=== PATIENT | male | born 1980 | race Caucasian/White ===

== ENCOUNTER 2019-02-03 11:37 | Inpatient (IN) ==
--- NOTE | 2019-01-31 10:03 | EKG Report ---
Test Performed on : 01/31/2019 09:46:58 AM Test Reason : pat Blood Pressure : / mmHG Vent. Rate : 072 BPM Atrial Rate : 072 BPM P-R Int : 140 ms QRS Dur : 078 ms QT Int : 380 ms P-R-T Axes : 049 021 041 degrees QTc Int : 416 ms Normal sinus rhythm. Normal ECG When compared with ECG of 28-FEB-2016 11:46, No significant change was found Confirmed by Michael STILL, Clifford Santana ([id number]) on 02/02/2019 9:41:12 AM
[2019-01-31 10:21] LABS: HEMATOCRIT 44.1 % (42.0-52.0); HEMOGLOBIN 14.8 g/dL (14.0-18.0); MCH 28.8 PG (27-31); MCHC 33.6 g/dL (33-37); MCV 85.8 FL (81-99); MPV 9.7 FL (7.4-10.4); RBC 5.14 XMIL (4.7-6.1); RDW 14.3 % (11.5-14.5); WBC 11.47 X1000 (4.8-10.8)
[2019-01-31 11:07] LABS: AGAP 8; BUN 11 mg/dL (8-22); CALCIUM 9.4 mg/dL (8.8-10.2); CHLORIDE 102 mmol/L (98-107); COSMO 281; CREATININE 0.9 mg/dL (0.7-1.2); ESTIMATED GFR > 60; GLUCOSE 147 mg/dL (70-104); POTASSIUM 4.7 mmol/L (3.5-5.1); SODIUM 140 mmol/L (136-145); TCO2 30 mmol/L (25-35)
[2019-02-03] MEDS ORDERED: PEPCID ONE (12:25)
[2019-02-03] MEDS ORDERED: LR 1,000 ML ONE (12:25)
[2019-02-03] MEDS ORDERED: REGLAN ONE (12:25)
[2019-02-03] MEDS ORDERED: ROBINUL ONE ×2 (14:10→14:34)
[2019-02-03] MEDS ORDERED: DIPRIVAN 1% ONE (14:10)
[2019-02-03] MEDS ORDERED: XYLOCAINE-MPF 2% ONE (14:10)
[2019-02-03] MEDS ORDERED: NEOSTIGMINE ONE (14:34)
[2019-02-03] MEDS ORDERED: VANCOMYCIN ONE (14:40)
[2019-02-03] MEDS ORDERED: TOBRAMYCIN POWDER MISC ONE (14:45)
[2019-02-03] MEDS ORDERED: KEFZOL 2 GM/D5W 2 GM/50 ML IVPB ONE (15:37)
[2019-02-03] MEDS ORDERED: TORADOL ONE (15:56)
[2019-02-03] MEDS ORDERED: OFIRMEV 1000 MG/ISOTONIC SOLN 1,000 MG/100 ML BOTTLE ONE (15:56)
[2019-02-03] MEDS ORDERED: ZOFRAN ONE (15:56)
[2019-02-03] MEDS ORDERED: ZOFRAN IV PRN (16:46)
--- NOTE | 2019-02-03 20:59 | OPERATIVE NOTE ---
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 POSTOPERATIVE DIAGNOSIS: Right 5th metatarsal osteomyelitis. PROCEDURES: 1. Right irrigation and debridement to bone of the foot. 2. Right partial excision, 5th metatarsal. 3. Placement of antibiotic cement. SURGEON: Doug Espinoza MD. PATTERN FILER: J LUIS Frias, who was an integral part of the case, helping with all aspects of the case and helping to increase our OR efficiency greatly. ANESTHESIA: General with LMA. TOURNIQUET TIME: Less than 1 hour. IMPLANTS: Antibiotic cement with vancomycin and tobramycin. DISPOSITION: To PACU, hemodynamically stable. INDICATION FOR PROCEDURE: Mr. Garcia is a 39-year-old male whom I have been taking care of for a while now. He has had several infections in this foot, and here recently, he has had another infection that has gotten better with p.o. antibiotics. It is still somewhat red, and it looked like on MRI he had a 5th metatarsal osteomyelitis. I discussed with operative intervention to try to completely eradicate this infection, and he expressed understanding and wished to proceed. DESCRIPTION OF PROCEDURE: Mr. Garcia was identified in the preoperative holding area. The right foot was marked as the correct surgical site. He was then wheeled to the operating room and placed supine on the operating table. All bony prominences were well padded. He was induced under general anesthesia. LMA was placed. He was then flipped to the left lateral decubitus position. All bony prominences were checked again and well padded. The right lower extremity was then prepped with chlorhexidine, gluconate scrub, and then ChloraPrep and draped in normal sterile fashion. Surgical pause was performed. We identified the correct patient, the correct side, and the correct procedure. Preop antibiotics were held for cultures. We started with an incision over the 5th metatarsal. Dissection was carried down. I did not run into a lot of purulence. We got down to bone and ended up taking cultures right off the bone. After that, I gave antibiotics. I then cleaned out that whole area. There was some tissue that was not good bone at all, and so we used a curette and a rongeur to scrape the bone back until it looked nice and healthy on both the distal and then the proximal end. There was a little bit of a cavity left there in the end, and I debrided some of the soft tissue around that area also. I did not feel any pockets of pus or fluid anywhere, and it did not show up on the MRI, either. At this point, we irrigated everything copiously with normal saline. I then mixed up the bone cement and put tobramycin and vancomycin powder in. I then put some of the bone cement down in that void. We then closed with 0 Vicryl for the deep layer and then nylon on the skin. Adaptic, 4x4s, ABD, Sof-Rol, and posterior splint was applied. The tourniquet was let down. The patient had good capillary refill return to the toes. He was then awoken from general anesthesia, moved to his own bed, and taken to the PACU in stable condition. PLAN: Postoperatively, he will be nonweightbearing, right lower extremity. He will be admitted for IV antibiotics, and I will consult Dr. Tate as well. cc: Doug Espinoza MD
[2019-02-04] MEDS: OXY IR PO PRN ×3 (00:18→15:59)
[2019-02-04] MEDS: KEFZOL 1 GM/D5W 1 GM/50 ML IVPB IV SCH ×4 (00:19→22:15)
[2019-02-04] MEDS: LOVENOX SUBQ SCH (06:43)
--- NOTE | 2019-02-04 09:59 | ORTHOPAEDICS PROGRESS NOTE ---
DATE: 02/04/2019 SUBJECTIVE: Mr. Garcia is lying in bed this morning. Pain is controlled. OBJECTIVE: Right lower extremity exam, dressing is clean, dry, and intact. He is able to move the toes but does not have good feeling to the toes. ASSESSMENT: Status post right 5th metatarsal irrigation and debridement and partial excision and placement of antibiotic cement. PLAN: I discussed with Mr. Garcia about our plan. We will get him on IV antibiotics. Consult Dr. Tate for management of IV antibiotics. Will await his cultures as well. He is nonweightbearing right lower extremity for now. cc: Doug Espinoza MD
--- NOTE | 2019-02-04 12:43 | INFECTIOUS DISEASE CONSULT REP ---
DATE: 02/04/2019 CONCLUSION: The patient is status post surgery on his right foot by Dr. Espinoza for osteomyelitis. RECOMMENDATIONS: Pending the results of culture, I have placed the patient on cefepime. The patient is allergic to clindamycin and penicillin. However, he has tolerated cefazolin well, which is being used now for prophylaxis. Therefore, I think he should tolerate cefepime, which also is a cephalosporin antibiotic, quite well also. I plan to treat the patient for anywhere from 6 to 8 weeks with antibiotics pending on the organism, and also most likely it will be with intravenous antibiotics. DISCUSSION: The patient has been having right foot swelling and erythema. He underwent surgery on the foot by Dr. Espinoza yesterday. Osteomyelitis was noted on the 5th metatarsal. The patient's laboratory studies [place] [address], hemoglobin 14.8, and platelet count 346,000. Creatinine is 0.9. GFR is greater than 60. Gram stain of the material obtained at surgery showed no organisms. The culture is pending. PAST MEDICAL HISTORY/REVIEW OF SYSTEMS: Eyes and ears: He does not have any problem hearing or seeing. Neck: No stiffness. Respiratory: No cough or shortness of breath. Cardiac: No chest pain or palpitations. Gastrointestinal: No nausea, vomiting, or diarrhea. Genitourinary: No dysuria or flank pain. Bones, joints, muscles: See present illness. Endocrine: The patient is a diabetic but he does not have thyroid disease. Integument: No rashes. PREVIOUS HOSPITALIZATIONS AND OPERATIONS: The patient has had surgery previously on his right foot for infection. Also, he has had surgery for a renal calculus. MEDICAL DISEASES: Positive for diabetes mellitus, hypertension, hyperlipidemia, and renal calculi. INFECTIOUS DISEASE HISTORY: Positive for UTI and a right foot infection. FAMILY HISTORY: Positive for hypertension, myocardial infarction, stroke and cancer. SOCIAL HISTORY: [place] He is . He has a dog as a pet. The patient smokes cigarettes and drinks alcoholic beverages. He does not abuse drugs. 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 ALLERGIES: He is allergic to clindamycin and penicillin. The penicillin allergy is a rash. He has tolerated cefazolin well. HOME MEDICATIONS: 1. Wellbutrin. 2. Glipizide. 3. Mevacor. 4. Glucophage. 5. Zoloft. PHYSICAL EXAMINATION: Vital Signs: Temperature is 98.7 degrees, pulse 70, respirations 18, blood pressure 120/66. Patient weighs 275 pounds. General: This is an obese, young male. He is in no acute distress. Head/eyes/ears/nose/throat: He can hear my spoken words and see near objects. He does not have any white patches in his mouth. Neck: No meningismus. Lungs: Clear to auscultation. Cardiovascular: Peripheral pulses are palpable. Heart rate is regular. Abdomen: Soft and nontender. Extremities: The patient's right foot is in a large splint which has a dressing around it and an Antonio wrap around the splint and the patient's leg. Neurologic: The patient can move his extremities. His sensation is intact to touch. Integument: No rash noted. Thank you for the consult. cc: MD Doug Mclean MD MTDD
[2019-02-05] MEDS: KEFZOL 1 GM/D5W 1 GM/50 ML IVPB IV SCH ×3 (06:14→21:28)
[2019-02-05] MEDS: LOVENOX SUBQ SCH (06:14)
[2019-02-05] MEDS: WELLBUTRIN PO SCH ×2 (08:57→21:27)
[2019-02-05] MEDS: OXY IR PO PRN (08:57)
[2019-02-05] MEDS: GLUCOPHAGE PO SCH ×3 (09:01→17:10)
[2019-02-05] MEDS: ZOLOFT PO SCH (09:01)
[2019-02-05] MEDS: GLUCOTROL PO SCH (09:02)
--- NOTE | 2019-02-05 09:39 | PROGRESS NOTE ---
DATE: 02/05/2019 SUBJECTIVE: Mr. Garcia is lying in bed this morning. Overall pain seems controlled. OBJECTIVE: Right lower extremity exam, splint is clean, dry, and intact. He is able to move the toes, and has decreased sensation to the toes. ASSESSMENT: Status post right foot irrigation and debridement, partial excision of fifth metatarsal, and placement of antibiotic bone cement. PLAN: Mr. Garcia is going to continue on IV antibiotics per Dr. Tate's recommendations Dr. Tate did see him yesterday and put him on cefepime. We will plan on 6 to 8 weeks of IV antibiotics depending on how he responds. Cultures are no growth at this point. He is going to be nonweightbearing to the right lower extremity. cc: Doug Espinoza MD
[2019-02-05] MEDS: MEVACOR PO SCH (17:09)
[2019-02-06] MEDS: KEFZOL 1 GM/D5W 1 GM/50 ML IVPB IV SCH ×4 (00:39→21:47)
[2019-02-06] MEDS: LOVENOX SUBQ SCH (06:19)
--- NOTE | 2019-02-06 08:50 | ORTHOPAEDICS PROGRESS NOTE ---
DATE: 02/06/2019 SUBJECTIVE: Mr. Garcia lying in bed this morning. Pain is well controlled. OBJECTIVE: On right lower extremity exam, splint is clean, dry, and intact. He is able to move the toes. Dorsiflexion and plantar flexion. ASSESSMENT: Status post right foot irrigation debridement and placement of antibiotic cement. PLAN: We will take Mr. Garcia's dressing down tomorrow, take a look at the foot. We will get everything set up for discharge tomorrow. He will more than likely get a PICC line and then 6 weeks of IV antibiotics per Dr. Tate's recommendations. He is going to remain nonweightbearing right lower extremity. It looks like his cultures came back for strep which is only resistant to clindamycin. cc: Doug Espinoza MD
[2019-02-06] MEDS: GLUCOPHAGE PO SCH ×3 (09:15→16:33)
[2019-02-06] MEDS: WELLBUTRIN PO SCH ×2 (09:15→21:47)
[2019-02-06] MEDS: GLUCOTROL PO SCH (09:15)
[2019-02-06] MEDS: ZOLOFT PO SCH (09:15)
[2019-02-06] MEDS: MEVACOR PO SCH (16:33)
[2019-02-07] MEDS: KEFZOL 1 GM/D5W 1 GM/50 ML IVPB IV SCH ×3 (04:41→07:38)
[2019-02-07] MEDS: LOVENOX SUBQ SCH (05:20)
--- NOTE | 2019-02-07 07:56 | ORTHOPAEDICS PROGRESS NOTE ---
DATE: 02/07/2019 SUBJECTIVE: Mr. Garcia is lying in bed this morning. Overall feeling okay. OBJECTIVE: Right lower extremity exam: Dressing was taken down today. Wounds are looking good. His erythema to the lateral aspect of the foot is completely gone. He has a lot of numbness to the foot, which is his baseline. ASSESSMENT: Status post right irrigation and debridement of the foot, fifth metatarsal partial excision, and placement of antibiotic cement. PLAN: I am okay with Mr. Garcia being discharged at this point, if we can get everything set up from an antibiotic standpoint. Dr. Tate will more than likely make the final recommendations today. I got [employer] involved for discharge planning. If everything can be done today, we can get him discharged. He is nonweightbearing on the right lower extremity, and I need to see him in a week in clinic. cc: Doug Espinoza MD
[2019-02-07] MEDS: ZOLOFT PO SCH (08:34)
[2019-02-07] MEDS: GLUCOTROL PO SCH (08:34)
[2019-02-07] MEDS: WELLBUTRIN PO SCH (08:34)
[2019-02-07] MEDS: GLUCOPHAGE PO SCH ×3 (08:34→16:55)
[2019-02-07 11:42] VITALS: BP 111/72
[2019-02-07] MEDS ORDERED: ROCEPHIN 2 GM in NS 50 ML IV SCH (11:45)
[2019-02-07 12:24] LABS: INR 0.84; PROTIME 12.2 Seconds (11.0-16.0)
[2019-02-07] MEDS ORDERED: NS 250 ML ONE (13:23)
--- NOTE | 2019-02-07 15:56 | INFECTIOUS DISEASE PROGRESS NO ---
DATE: 02/07/2019 The patient has strep agalactiae which is group B strep osteomyelitis of the right foot. A PICC is being installed today and consult for [employer] has been ordered to treat the patient with Rocephin 2 g IV every 12 hours for a total of 6 weeks. I have requested an appointment in my office at 3 weeks and then again we will see him back in 6 weeks at which time the IV antibiotic will be stopped and the PICC will be removed. Depending on how the patient's foot looks, we may want to continue oral antibiotics. Most likely this would be Keflex. cc: MD Doug Mclean MD MTDD
[2019-02-07] MEDS: MEVACOR PO SCH (16:55)
[2019-02-07] MEDS ORDERED: PNEUMOVAX 23 IM ONE (17:00)
== END 2019-02-07 17:01 | disposition home health service (06) | DRG 629 ==
LOC: OR 11:37 → 4N 11:37 → OBSVTOIN 17:20
PROVIDERS: ADMIT Orthopaedic Surgery; ATTEND Orthopaedic Surgery
CPT/HCPCS: 36569; 76000; 80048; 82948; 85027; 85610; 87070; 87075; 87077; 87186; 87205; 90732; 93005; 93010; 94761; 94799; 97161; A9270; J0131; J0690; J0696; J1650; J1885; J2405; J3260; J3370; J7050; J7120; XXXXX